=== PATIENT | female | born 1970 | race Caucasian/White ===

== ENCOUNTER 2024-07-11 08:56 | Emergency (ER) | payer OTHER ==
[~2024-07-11] VITALS: Ht 160 cm; Wt 70.0 kg
[2024-07-11 08:59] VITALS: O2SAT 96
[2024-07-11] MEDS: ACETAMINOPHEN WITH CODEINE 300/30MG TABLET PO ONE (09:57)
[2024-07-11 11:16] VITALS: BP 154/94; PULSE 68; RESP 17; TEMP 36.78072; O2SAT 98
== END 2024-07-11 11:19 | disposition home or self-care (01) ==
LOC: ER 09:19
DX: S52.502A Unspecified fracture of the lower end of left radius, initial encounter for closed fracture (principal); M54.6 Pain in thoracic spine; M79.18 Myalgia, other site; V49.49XA Driver injured in collision with other motor vehicles in traffic accident, initial encounter; Y93.89 Activity, other specified; Y92.89 Other specified places as the place of occurrence of the external cause; Y99.8 Other external cause status
CPT/HCPCS: 29105; 71045; 73090; 99284; A4565